=== PATIENT | male | born 1970 | race Caucasian/White ===

== ENCOUNTER 2018-01-24 18:58 | Emergency (ER) | payer OTHER, BC ==
[2018-01-24] MEDS: CETACAINE SPRAY 5GM TOP (19:30)
[2018-01-24] MEDS: NS 1,000 ML IV (19:30)
[2018-01-24] MEDS: BUPIVACAINE HCL 0.5% 30 ML VIAL SC (19:30)
[2018-01-24 20:13] LABS: ACETAMINOPHEN LEVEL < 2.0 UG/ML (10.0-30.0); ALBUMIN 4.1 GM/DL (3.2-5.2); ALBUMIN/GLOBULIN RATIO 1.32 (1.00-1.93); ALKALINE PHOSPHATASE 65 U/L (45-117); ALT/SGPT 41 U/L (12-78); ANION GAP 10 MEQ/L (8-16); AST/SGOT 27 U/L (7-37); BILIRUBIN,DIRECT < 0.1 MG/DL (0.0-0.2); BILIRUBIN,TOTAL 0.2 MG/DL (0.2-1.0); BLOOD UREA NITROGEN 23 MG/DL (7-18); CALCIUM LEVEL 8.8 MG/DL (8.5-10.1); CARBON DIOXIDE LEVEL 22 MEQ/L (21-32); CHLORIDE LEVEL 109 MEQ/L (98-107); CREATININE FOR GFR 0.95 MG/DL (0.70-1.30); GLOMERULAR FILTRATION RATE > 60.0 (>60); GLUCOSE, FASTING 119 MG/DL (70-100); POTASSIUM SERUM 4.2 MEQ/L (3.5-5.1); SALICYLATE LEVEL 10.2 MG/DL (5.0-30.0); SODIUM LEVEL 141 MEQ/L (136-145); TOTAL PROTEIN 7.2 GM/DL (6.4-8.2)
== END 2018-01-24 21:25 | disposition home or self-care (01) ==
LOC: M ED 18:58
DX: K08.89 Other specified disorders of teeth and supporting structures (principal); F17.210 Nicotine dependence, cigarettes, uncomplicated
CPT/HCPCS: 80076

== ENCOUNTER → 2018-06-27 | Outpatient (REF) | payer BC | LOC: M SFHCLERA 11:56 | PROVIDERS: ATTEND Physician Assistant | DX: J02.9 Acute pharyngitis, unspecified (principal) ==

== ENCOUNTER → 2018-06-27 | Outpatient (CLI) | payer BC ==
--- NOTE | 2018-06-27 12:45 | REP ---
Chest two views HISTORY: Cough Comparison: 12/15/2011 The lungs are clear. The heart is normal in size. The pulmonary vasculature is normal in appearance. The bony structure is intact. IMPRESSION: No acute disease. Electronically Signed by Roberto Meléndez MD 06/27/2018 12:37 P
== END ==
LOC: M LRY 12:15
PROVIDERS: ATTEND Physician Assistant
DX: R05 Cough (principal); R06.02 Shortness of breath

== ENCOUNTER 2018-10-07 17:26 | Emergency (ER) | payer BC ==
[2018-10-07 17:54] LABS: BASO # 0.1 10^3/uL (0.0-0.2); BASO % 0.4 % (0.0-1.0); EOS # 0.3 10^3/uL (0.0-0.50); EOS % 2.2 % (0.0-3.0); HEMATOCRIT 42.5 % (42.0-52.0); HEMOGLOBIN 14.1 g/dl (13.5-17.5); LYMPH # 2.9 10^3/uL (1.5-4.5); LYMPH % 26.1 % (24.0-44.0); MEAN CORPUSCULAR HEMOGLOBIN 28.7 pg (27.0-33.0); MEAN CORPUSCULAR HGB CONC 33.2 g/dl (32.0-36.5); MEAN CORPUSCULAR VOLUME 86.4 fl (80.0-96.0); MONO # 0.8 10^3/uL (0.0-0.8); MONO % 6.8 % (0.0-5.0); NEUTROPHILS # 7.2 10^3/uL (1.8-7.7); NEUTROPHILS % 64.1 % (36.0-66.0); PLATELET COUNT, AUTOMATED 236 10^3/uL (150-450); RED BLOOD COUNT 4.92 10^6/uL (4.30-6.10); WHITE BLOOD COUNT 11.2 10^3/uL (4.0-10.0)
[2018-10-07 18:16] LABS: ALBUMIN 3.4 GM/DL (3.2-5.2); ALT/SGPT 40 U/L (12-78); BILIRUBIN,DIRECT < 0.1 MG/DL (0.0-0.2); BILIRUBIN,TOTAL 0.2 MG/DL (0.2-1.0); LIPASE 104 U/L (73-393); TOTAL PROTEIN 7.2 GM/DL (6.4-8.2)
[2018-10-07 18:18] LABS: INR 0.96; PROTHROMBIN TIME 12.9 SECONDS (12.1-14.4)
[2018-10-07 18:19] LABS: PARTIAL THROMBOPLASTIN TIME 26.8 SECONDS (25.4-37.6)
[2018-10-07 18:21] LABS: BLOOD UREA NITROGEN 19 MG/DL (7-18); CALCIUM LEVEL 8.4 MG/DL (8.5-10.1); CARBON DIOXIDE LEVEL 23 MEQ/L (21-32); CHLORIDE LEVEL 107 MEQ/L (98-107); CK-MB VALUE MASS 1.2 NG/ML (<3.6); CPK CREATINE PHOSPHOKINASE 217 U/L (39-308); CREATININE FOR GFR 0.98 MG/DL (0.70-1.30); GLOMERULAR FILTRATION RATE > 60.0 (>56); GLUCOSE, FASTING 272 MG/DL (70-100); MB/CK RELATIVE INDEX 0.55 (< OR =4); POTASSIUM SERUM 3.9 MEQ/L (3.5-5.1); SODIUM LEVEL 140 MEQ/L (136-145); TROPONIN I < 0.02 NG/ML (< 0.10)
--- NOTE | 2018-10-07 19:33 | REP ---
Portable chest x-ray: Two views: History: Chest pain. Comparison study: June 27, 2018. Findings: EKG monitoring electrodes overlie the chest. The lungs are well inflated and clear. Heart size is normal. Pulmonary vasculature is not increased. No bony abnormalities appreciated. Impression: No active disease. Electronically Signed by Isidro Elliott MD 10/07/2018 07:45 P
[2018-10-07 22:48] LABS: CK-MB VALUE MASS 1.5 NG/ML (<3.6); CPK CREATINE PHOSPHOKINASE 215 U/L (39-308); TROPONIN I < 0.02 NG/ML (< 0.10)
[2018-10-07 22:57] VITALS: BP 121/66
--- NOTE | 2018-10-08 08:10 | ECGEPIP ---
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
--- NOTE | 2018-10-08 08:18 | ECGEPIP ---
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
== END 2018-10-07 22:59 | disposition home or self-care (01) ==
LOC: M ED 17:26 → EDBD 17:26 → M ED 22:59
DX: R07.89 Other chest pain (principal); I45.10 Unspecified right bundle-branch block; F17.210 Nicotine dependence, cigarettes, uncomplicated

== ENCOUNTER → 2019-01-18 | Outpatient (CLI) | payer BC ==
--- NOTE | 2019-01-19 09:30 | REP ---
CHEST, TWO VIEWS: COMPARISON: 10/07/2018 as well as other prior exams. There is no evidence of acute infiltrate. No pleural effusion is seen. The heart is normal in size. The mediastinal silhouette is unremarkable. The visualized osseous structures are intact. There are mild degenerative changes of the spine. IMPRESSION: No acute pulmonary disease. Electronically Signed by Darvin Rivas MD 01/19/2019 05:57 P
== END ==
LOC: M LRY 17:14
PROVIDERS: ATTEND Physician Assistant
DX: R06.2 Wheezing (principal)

== ENCOUNTER → 2020-05-25 | Outpatient (REF) | payer BC ==
[2020-05-25 17:02] LABS: BASO # 0.1 10^3/uL (0.0-0.2); BASO % 0.6 % (0.0-1.0); EOS # 0.5 10^3/uL (0.0-0.5); EOS % 4.3 % (0.0-3.0); HEMATOCRIT 46.5 % (42.0-52.0); HEMOGLOBIN 15.6 g/dl (13.5-17.5); LYMPH # 3.5 10^3/uL (1.5-5.0); LYMPH % 32.6 % (24.0-44.0); MEAN CORPUSCULAR HEMOGLOBIN 28.8 pg (27.0-33.0); MEAN CORPUSCULAR HGB CONC 33.5 g/dl (32.0-36.5); MONO # 0.8 10^3/uL (0.0-0.8); MONO % 7.3 % (0.0-5.0); NEUTROPHILS # 5.9 10^3/uL (1.5-8.5); NEUTROPHILS % 54.7 % (36.0-66.0); PLATELET COUNT, AUTOMATED 252 10^3/uL (150-450); RED BLOOD COUNT 5.41 10^6/uL (4.30-6.10); WHITE BLOOD COUNT 10.7 10^3/uL (4.0-10.0)
[2020-05-25 17:45] LABS: ALBUMIN 4.2 GM/DL (3.2-5.2); ALT/SGPT 43 U/L (12-78); BILIRUBIN,TOTAL 0.3 MG/DL (0.2-1.0); BLOOD UREA NITROGEN 22 MG/DL (7-18); CALCIUM LEVEL 9.6 MG/DL (8.5-10.1); CARBON DIOXIDE LEVEL 27 MEQ/L (21-32); CHLORIDE LEVEL 103 MEQ/L (98-107); CHOLESTEROL LEVEL 240 MG/DL (<200); CHOLESTEROL RISK RATIO 8.571 (<5); CREATININE FOR GFR 0.88 MG/DL (0.70-1.30); FREE T4 0.82 NG/DL (0.76-1.46); GLOMERULAR FILTRATION RATE > 60.0 (>56); GLUCOSE, FASTING 177 MG/DL (70-100); HDL CHOLESTEROL 28 MG/DL (>40); MAGNESIUM LEVEL 2.1 MG/DL (1.8-2.4); NON-HDL-C 212 MG/DL; POTASSIUM SERUM 4.1 MEQ/L (3.5-5.1); SODIUM LEVEL 136 MEQ/L (136-145); TOTAL PROTEIN 7.5 GM/DL (6.4-8.2); TRIGLYCERIDES LEVEL 640 MG/DL (<150)
[2020-05-25 19:15] LABS: HEMOGLOBIN A1c 8.9 %
[2020-05-29 16:13] LABS: C-PEPTIDE 4.1 ng/mL (1.1-4.4); ISLET CELL ANTIBODIES Negative (Neg:<1:1)
== END ==
LOC: M SFHCPLAZ 14:39
PROVIDERS: ATTEND Nurse Practitioner Family
DX: Z13.228 Encounter for screening for other metabolic disorders (principal); Z13.220 Encounter for screening for lipoid disorders; Z12.5 Encounter for screening for malignant neoplasm of prostate; I10 Essential (primary) hypertension; E11.9 Type 2 diabetes mellitus without complications
CPT/HCPCS: 36415; 80053; 80061; 83036; 83519; 83735; 84439; 84443; 84681; 85025; 86341; G0103

== ENCOUNTER → 2020-06-07 | Outpatient (CLI) | payer BC ==
--- NOTE | 2020-06-07 14:57 | REP ---
INDICATION: HTN EVAL FOR MILAN COMPARISON: None TECHNIQUE: Real time richmond scale ultrasound examination using curved array transducer followed by color Doppler evaluation of the renal vasculature. FINDINGS: The bilateral kidneys are normal in appearance. Right kidney measures 12.9 x 6.1 x 5.7 cm. Left kidney measures 12.9 x 5.8 x 6.1 cm. Bladder is under distended. Color Doppler evaluation is significantly limited due to overlying bowel gas obscuring the bilateral main renal arteries.. Peak aortic velocity: 60 centimeters/second RIGHT KIDNEY Renal arterial velocity: -- centimeters/second Renal-aortic ratio: -- Intrarenal resistive indices: 0.60-0.64 Intrarenal acceleration times: 0.042-0.050 LEFT KIDNEY Renal arterial velocity: -- centimeters/second Renal-aortic ratio: -- Intrarenal resistive indices: 0.53-0.55 Intrarenal acceleration times: 0.042-0.046 IMPRESSION: 1. Kidneys appear normal. 2. Doppler interegation is incomplete due to overlying bowel gas obscuring the main renal arteries. No secondary intrarenal findings to suggest renal arterial stenosis. <Electronically signed by Charly Hammond > 06/07/20 [id number]
== END ==
LOC: M RAD 08:41
PROVIDERS: ATTEND Nurse Practitioner Family
DX: I10 Essential (primary) hypertension (principal)

== ENCOUNTER 2020-11-30 06:50 | Emergency (ER) | payer BC ==
[~2020-11-30] VITALS: Ht 182.9 cm; Wt 129.6 kg
[2020-11-30 08:09] LABS: BASO # 0.1 10^3/uL (0.0-0.2); BASO % 0.4 % (0.0-1.0); EOS # 0.2 10^3/uL (0.0-0.5); EOS % 1.8 % (0.0-3.0); HEMATOCRIT 45.3 % (42.0-52.0); HEMOGLOBIN 15.1 g/dl (13.5-17.5); LYMPH # 1.7 10^3/uL (1.5-5.0); LYMPH % 14.5 % (24.0-44.0); MEAN CORPUSCULAR HEMOGLOBIN 28.9 pg (27.0-33.0); MEAN CORPUSCULAR HGB CONC 33.3 g/dl (32.0-36.5); MEAN CORPUSCULAR VOLUME 86.6 fl (80.0-96.0); MONO # 0.5 10^3/uL (0.0-0.8); MONO % 4.6 % (2.0-8.0); NEUTROPHILS # 9.1 10^3/uL (1.5-8.5); NEUTROPHILS % 78.2 % (36.0-66.0); PLATELET COUNT, AUTOMATED 228 10^3/uL (150-450); RED BLOOD COUNT 5.23 10^6/uL (4.30-6.10); WHITE BLOOD COUNT 11.6 10^3/uL (4.0-10.0)
[2020-11-30 08:33] LABS: BLOOD UREA NITROGEN 21 MG/DL (7-18); CARBON DIOXIDE LEVEL 27 MEQ/L (21-32); CHLORIDE LEVEL 106 MEQ/L (98-107); CK-MB VALUE MASS 1.5 NG/ML (<3.6); CPK CREATINE PHOSPHOKINASE 118 U/L (39-308); CREATININE FOR GFR 0.78 MG/DL (0.70-1.30); GLOMERULAR FILTRATION RATE > 60.0 (>56); GLUCOSE, FASTING 212 MG/DL (70-100); MB/CK RELATIVE INDEX 1.27 (< OR =4); POTASSIUM SERUM 4.3 MEQ/L (3.5-5.1); SODIUM LEVEL 140 MEQ/L (136-145); TROPONIN I < 0.02 NG/ML (< 0.10)
--- NOTE | 2020-11-30 08:57 | REP ---
INDICATION: dizziness. COMPARISON: None. TECHNIQUE: Contiguous 5 mm thick axial projection images were obtained through the head. 2D coronal reconstructions were performed. FINDINGS: There is a focus of encephalomalacia in the right prefrontal cortex, may be posttraumatic. There is no evidence of acute intracranial hemorrhage or infarction. There are no abnormal intracranial masses or mass effects. The skull base and calvarium are normal. There is almost complete opacification of the right maxillary sinus. There is a mucous retention cyst or polyp in the left maxillary sinus. There are multiple opacified ethmoidal air cells, bilaterally. There are multiple opacified mastoid air cells on the left. The right mastoid is normal. The intraorbital contents are normal. Visualized extracranial soft tissues have a normal unenhanced appearance. IMPRESSION: 1. 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 2. No evidence of acute intracranial pathology. 3. Chronic maxillary and ethmoidal sinusitis and chronic left mastoiditis. <Electronically signed by Rdori Eisenberg > 11/30/20 [id number]
[2020-11-30] MEDS ORDERED: GLIM2TAB29 (09:15)
[2020-11-30] MEDS ORDERED: dexameTHASONE 20MG/5ML VIAL (J1100 PER 1MG) IV ONE (09:20)
[2020-11-30] MEDS ORDERED: LevoFLOXacin IV 500 MG in IV 1 EA IV ONE (09:25)
[2020-11-30] MEDS ORDERED: METH4PACK PO (12:04)
[2020-11-30] MEDS ORDERED: LEVO500T3 PO (12:04)
[2020-11-30] MEDS ORDERED: MECL1TAB31 PO (12:05)
[2020-11-30 12:38] VITALS: BP 140/72
--- NOTE | 2020-11-30 21:54 | ECGEPIP ---
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
== END 2020-11-30 12:38 | disposition home or self-care (01) ==
LOC: M ED 06:50
DX: R42 Dizziness and giddiness (principal); H70.12 Chronic mastoiditis, left ear; G93.89 Other specified disorders of brain; E11.9 Type 2 diabetes mellitus without complications; E66.9 Obesity, unspecified; F17.200 Nicotine dependence, unspecified, uncomplicated; Z79.899 Other long term (current) drug therapy
CPT/HCPCS: 70450; 80048; 82550; 82553; 84484; 85025; 93005; 96365; 96375; 97112; 97161; 99285; J1100; J1956

== ENCOUNTER → 2020-12-21 | Outpatient (CLI) | payer BC ==
[~2020-12-21] MED LIST: GLIM2TAB29; LEVO500T3 PO; MECL1TAB31 PO; METH4PACK PO
[2020-12-21 20:03] LABS: ALBUMIN 3.5 GM/DL (3.2-5.2); ALT/SGPT 38 U/L (12-78); BILIRUBIN,TOTAL 0.2 MG/DL (0.2-1.0); BLOOD UREA NITROGEN 13 MG/DL (7-18); CALCIUM LEVEL 8.7 MG/DL (8.5-10.1); CARBON DIOXIDE LEVEL 25 MEQ/L (21-32); CHLORIDE LEVEL 110 MEQ/L (98-107); CHOLESTEROL LEVEL 226 MG/DL (<200); CHOLESTEROL RISK RATIO 8.692 (<5); CREATININE FOR GFR 0.88 MG/DL (0.70-1.30); GLOMERULAR FILTRATION RATE > 60.0 (>56); GLUCOSE, FASTING 198 MG/DL (70-100); HDL CHOLESTEROL 26 MG/DL (>40); NON-HDL-C 200 MG/DL; SODIUM LEVEL 140 MEQ/L (136-145); TOTAL PROTEIN 6.7 GM/DL (6.4-8.2); TRIGLYCERIDES LEVEL 444 MG/DL (<150)
[2020-12-21 20:56] LABS: MAU/CREAT RATIO 197.2 MCG/MG (0.0-30.0)
[2020-12-21 22:40] LABS: HEMOGLOBIN A1c 9.6 %
== END ==
LOC: M WUC 14:59
PROVIDERS: ATTEND Nurse Practitioner Family
DX: E11.9 Type 2 diabetes mellitus without complications (principal); E78.5 Hyperlipidemia, unspecified

== ENCOUNTER → 2021-04-07 | Outpatient (CLI) | payer BC ==
[2021-04-07 19:48] LABS: BASO # 0.1 10^3/uL (0.0-0.2); BASO % 0.9 % (0.0-1.0); EOS # 0.6 10^3/uL (0.0-0.5); EOS % 5.5 % (0.0-3.0); HEMATOCRIT 49.3 % (42.0-52.0); HEMOGLOBIN 16.4 g/dl (13.5-17.5); LYMPH # 3.9 10^3/uL (1.5-5.0); LYMPH % 34.7 % (24.0-44.0); MEAN CORPUSCULAR HGB CONC 33.3 g/dl (32.0-36.5); MEAN CORPUSCULAR VOLUME 87.1 fl (80.0-96.0); MONO # 0.8 10^3/uL (0.0-0.8); MONO % 6.9 % (2.0-8.0); NEUTROPHILS # 5.9 10^3/uL (1.5-8.5); NEUTROPHILS % 51.7 % (36.0-66.0); PLATELET COUNT, AUTOMATED 258 10^3/uL (150-450); RED BLOOD COUNT 5.66 10^6/uL (4.30-6.10); WHITE BLOOD COUNT 11.4 10^3/uL (4.0-10.0)
[2021-04-07 20:34] LABS: ALBUMIN 3.8 GM/DL (3.2-5.2); ALT/SGPT 38 U/L (12-78); BILIRUBIN,TOTAL 0.4 MG/DL (0.2-1.0); BLOOD UREA NITROGEN 15 MG/DL (7-18); CALCIUM LEVEL 9.6 MG/DL (8.5-10.1); CARBON DIOXIDE LEVEL 31 MEQ/L (21-32); CHLORIDE LEVEL 98 MEQ/L (98-107); CHOLESTEROL LEVEL 156 MG/DL (<200); CHOLESTEROL RISK RATIO 4.333 (<5); CREATININE FOR GFR 0.91 MG/DL (0.70-1.30); GLOMERULAR FILTRATION RATE > 60.0 (>56); GLUCOSE, FASTING 311 MG/DL (70-100); HDL CHOLESTEROL 36 MG/DL (>40); LDL CHOLESTEROL 86 MG/DL (<100); NON-HDL-C 120 MG/DL; POTASSIUM SERUM 4.1 MEQ/L (3.5-5.1); SODIUM LEVEL 134 MEQ/L (136-145); TOTAL PROTEIN 7.1 GM/DL (6.4-8.2); TRIGLYCERIDES LEVEL 169 MG/DL (<150)
== END ==
LOC: M WUC 15:40
PROVIDERS: ATTEND Family Medicine
DX: R68.89 Other general symptoms and signs (principal)

== ENCOUNTER → 2021-04-08 | Outpatient (CLI) | payer BC ==
[~2021-04-08] MED LIST changes: -LEVO500T3 PO; +LEVO500T4 PO
== END ==
LOC: M RAD 08:06
PROVIDERS: ATTEND Family Medicine
DX: R68.89 Other general symptoms and signs (principal); J34.1 Cyst and mucocele of nose and nasal sinus; D16.4 Benign neoplasm of bones of skull and face; J32.0 Chronic maxillary sinusitis

== ENCOUNTER → 2021-04-15 | Outpatient (CLI) | payer BC ==
[~2021-04-15] MED LIST changes: +GASTROGRAFIN SOLUTION 30ML (Q9963) As Ordered ONE; +ISOVUE-370 76% 100ML VIAL As Ordered ONE
== END ==
LOC: M RAD 15:01
PROVIDERS: ATTEND Family Medicine
DX: R19.7 Diarrhea, unspecified (principal); R10.84 Generalized abdominal pain; K57.30 Diverticulosis of large intestine without perforation or abscess without bleeding
CPT/HCPCS: 74177; Q9963; Q9967

== ENCOUNTER → 2021-04-27 | Outpatient (CLI) | payer BC ==
[~2021-04-27] MED LIST changes: -GASTROGRAFIN SOLUTION 30ML (Q9963) As Ordered ONE; -ISOVUE-370 76% 100ML VIAL As Ordered ONE; +LEVO500T3 PO; -LEVO500T4 PO; +PROHANCE 279.3MG/ML 15ML VIAL As Ordered ONE; +PROHANCE 279.3MG/ML 5ML VIAL As Ordered ONE
--- NOTE | 2021-04-27 15:15 | REPVR ---
PROCEDURE INFORMATION: Exam: MR Head Without and With Contrast Exam date and time: 04/27/2021 8:40 AM Age: 50 years old Clinical indication: Pain; Headache not specified; Additional info: Headaches TECHNIQUE: Imaging protocol: MR of the head without and with intravenous contrast. Contrast material: PROHANCE; Contrast volume: 20 ml; Contrast route: INTRAVENOUS (IV); COMPARISON: CT Head without contrast 04/08/2021 8:30 AM FINDINGS: Brain: Stable small focal chronic hypodense nonenhancing encephalomalacia in the right anterior frontal lobe. Examination reveals few small focal areas of increased T2 signal in bilateral frontal and parietal subcortical and deep white matter. These are nonspecific and could be secondary to chronic migraine headache, vasculitis, Lyme disease, demyelination and focal areas of chronic ischemia. No acute infarction, masses, midline shift or acute hemorrhage is seen. No acute intracranial abnormality is identified. There is no abnormal diffusion weighted signal intensity to suggest an acute ischemic event. Examination of the posterior fossa demonstrates no significant abnormality. Cerebral ventricles: The ventricular system is not dilated and is appropriate for the patient's age. Bones/joints: Unremarkable. Paranasal sinuses: Retention cysts in bilateral maxillary sinuses. Moderate mucosal thickening in bilateral ethmoid sinuses. Mastoid air cells: Left-sided mastoid effusions/mastoiditis. Orbital cavity: Unremarkable. Soft tissues: Unremarkable. IMPRESSION: 1. Stable small focal chronic hypodense nonenhancing encephalomalacia in the right anterior frontal lobe. 2. Examination reveals few small focal areas of increased T2 signal in bilateral frontal and parietal subcortical and deep white matter. These are nonspecific and could be secondary to chronic migraine headache, vasculitis, Lyme disease, demyelination and focal areas of chronic ischemia. 3. No acute infarction, masses, midline shift or acute hemorrhage is seen. No acute intracranial abnormality is identified. No abnormal contrast enhancement is seen. 4. Left-sided mastoid effusions/mastoiditis. Electronically signed by: Raymond Card On 04/27/2021 15:14:38 PM
== END ==
LOC: M RAD 07:14
PROVIDERS: ATTEND Family Medicine
DX: G93.89 Other specified disorders of brain (principal); H74.8X2 Other specified disorders of left middle ear and mastoid; R51.9 Headache, unspecified
CPT/HCPCS: 70553; 87505; A9576

== ENCOUNTER → 2021-10-27 | Outpatient (CLI) | payer BC ==
[~2021-10-27] MED LIST changes: -LEVO500T3 PO; +LEVO500T4 PO; -PROHANCE 279.3MG/ML 15ML VIAL As Ordered ONE; -PROHANCE 279.3MG/ML 5ML VIAL As Ordered ONE
[2021-10-27 17:17] LABS: BASO # 0.1 10^3/uL (0.0-0.2); BASO % 0.8 % (0.0-1.0); EOS # 0.5 10^3/uL (0.0-0.5); EOS % 5.6 % (0.0-3.0); HEMATOCRIT 42.1 % (42.0-52.0); HEMOGLOBIN 14.2 g/dl (13.5-17.5); LYMPH % 34.1 % (24.0-44.0); MEAN CORPUSCULAR HEMOGLOBIN 29.6 pg (27.0-33.0); MEAN CORPUSCULAR HGB CONC 33.7 g/dl (32.0-36.5); MEAN CORPUSCULAR VOLUME 87.9 fl (80.0-96.0); MONO # 0.8 10^3/uL (0.0-0.8); MONO % 8.5 % (2.0-8.0); NEUTROPHILS # 4.5 10^3/uL (1.5-8.5); NEUTROPHILS % 50.8 % (36.0-66.0); PLATELET COUNT, AUTOMATED 241 10^3/uL (150-450); RED BLOOD COUNT 4.79 10^6/uL (4.30-6.10); WHITE BLOOD COUNT 8.8 10^3/uL (4.0-10.0)
[2021-10-27 17:39] LABS: ALBUMIN 4.3 GM/DL (3.2-5.2); ALT/SGPT 27 U/L (12-78); BILIRUBIN,TOTAL 0.4 MG/DL (0.2-1.0); BLOOD UREA NITROGEN 23 MG/DL (7-18); C REACTIVE PROTEIN QUANTITATIV 0.37 MG/DL (0.00-0.30); CALCIUM LEVEL 9.6 MG/DL (8.5-10.1); CARBON DIOXIDE LEVEL 28 MEQ/L (21-32); CHLORIDE LEVEL 108 MEQ/L (98-107); CHOLESTEROL LEVEL 187 MG/DL (<200); CHOLESTEROL RISK RATIO 5.666 (<5); CREATININE FOR GFR 0.93 MG/DL (0.70-1.30); GLOMERULAR FILTRATION RATE > 60.0 (>56); GLUCOSE, FASTING 124 MG/DL (70-100); HDL CHOLESTEROL 33 MG/DL (>40); LDL CHOLESTEROL 113 MG/DL (<100); NON-HDL-C 154 MG/DL; POTASSIUM SERUM 3.9 MEQ/L (3.5-5.1); RHEUMATOID FACTOR QUANT < 10.0 IU/ML (<15.0); SODIUM LEVEL 139 MEQ/L (136-145); TOTAL PROTEIN 6.9 GM/DL (6.4-8.2); TRIGLYCERIDES LEVEL 205 MG/DL (<150)
[2021-10-27 18:07] LABS: ERYTHROCYTE SEDIMENTATION RATE 10 mm/hr (0-20)
[2021-10-27 18:16] LABS: HEMOGLOBIN A1c 6.8 %
[2021-10-27 21:00] LABS: VITAMIN B12 LEVEL 526 PG/ML (247-911)
[2021-11-02 00:08] LABS: ANA (HEP2) Negative (.); CYCLIC CITRULLINATED PEPTIDE 7 units (0-19)
== END ==
LOC: M PLALAB 15:04
PROVIDERS: ATTEND Nurse Practitioner Family
DX: R20.0 Anesthesia of skin (principal); M25.541 Pain in joints of right hand; E78.5 Hyperlipidemia, unspecified; E11.9 Type 2 diabetes mellitus without complications

== ENCOUNTER → 2022-04-04 | Outpatient (CLI) | payer BC ==
[~2022-04-04] MED LIST changes: +LEVO1TAB39 PO; -LEVO500T4 PO
[2022-04-04 17:05] LABS: BASO # 0.1 10^3/uL (0.0-0.2); BASO % 0.5 % (0.0-1.0); EOS # 0.4 10^3/uL (0.0-0.5); HEMATOCRIT 42.9 % (42.0-52.0); HEMOGLOBIN 14.1 g/dl (13.5-17.5); LYMPH # 3.5 10^3/uL (1.5-5.0); LYMPH % 29.8 % (24.0-44.0); MEAN CORPUSCULAR HEMOGLOBIN 29.3 pg (27.0-33.0); MEAN CORPUSCULAR HGB CONC 32.9 g/dl (32.0-36.5); MONO # 0.9 10^3/uL (0.0-0.8); MONO % 7.8 % (2.0-8.0); NEUTROPHILS # 6.9 10^3/uL (1.5-8.5); NEUTROPHILS % 58.6 % (36.0-66.0); PLATELET COUNT, AUTOMATED 259 10^3/uL (150-450); RED BLOOD COUNT 4.82 10^6/uL (4.30-6.10); WHITE BLOOD COUNT 11.9 10^3/uL (4.0-10.0)
[2022-04-04 18:03] LABS: ALBUMIN 3.8 G/DL (3.2-5.2); ALKALINE PHOSPHATASE 91 U/L (46-116); ALT/SGPT 38 U/L (7.0-40); AST/SGOT 20 U/L (<34); BILIRUBIN,TOTAL 0.2 MG/DL (0.3-1.2); BLOOD UREA NITROGEN 25 MG/DL (9-23); CALCIUM LEVEL 9.5 MG/DL (8.5-10.1); CARBON DIOXIDE LEVEL 27 MMOL/L (20-31); CHLORIDE LEVEL 102 MMOL/L (98-107); CHOLESTEROL LEVEL 141 MG/DL (<200); CREATININE FOR GFR 0.79 MG/DL (0.70-1.30); GLOMERULAR FILTRATION RATE > 60.0 (>56); GLUCOSE, FASTING 162 MG/DL (60-100); HDL CHOLESTEROL 33.5 MG/DL (>40); LDL CHOLESTEROL 66.3 MG/DL (<100); NON-HDL-C 108 MG/DL; POTASSIUM SERUM 4.1 MMOL/L (3.5-5.1); SODIUM LEVEL 136 MMOL/L (136-145); TOTAL PROTEIN 7.1 G/DL (5.7-8.2); TRIGLYCERIDES LEVEL 206 MG/DL (<150)
[2022-04-04 18:16] LABS: CREATININE, URINE 145.6 MG/DL; MAU/CREAT RATIO 184.7 MCG/MG (0.0-30.0)
[2022-04-04 19:07] LABS: HEMOGLOBIN A1c 8.5 % (4.0-6.0)
== END ==
LOC: M PLALAB 16:01
PROVIDERS: ATTEND Nurse Practitioner Family
DX: I10 Essential (primary) hypertension (principal); E78.5 Hyperlipidemia, unspecified; E11.9 Type 2 diabetes mellitus without complications

== ENCOUNTER 2022-06-19 08:01 | Day surgery (SDC) | payer BC ==
[~2022-06-19] VITALS: Ht 190.5 cm; Wt 135.6 kg
[~2022-06-19 08:01] MED LIST changes: +ALBU8.5H INH; +ATOR80TA59 PO; +GLIM4TAB5 PO; +LISI10TA22 PO; +METF-838 PO; +NS 1,000 ML IV ONE
[2022-06-19] MEDS ORDERED: propofoL 200 MG/20 ML VIAL As Ordered ONE ×4 (09:31→10:07)
[2022-06-19] MEDS ORDERED: LIDOCAINE 2% 100MG/5ML SDV (FOR ANES.) As Ordered ONE (09:32)
[2022-06-19 10:50] VITALS: BP 111/68
== END 2022-06-19 11:10 | disposition home or self-care (01) ==
LOC: M OPP 08:01
PROVIDERS: ATTEND Internal Medicine Gastroenterology
DX: Z12.11 Encounter for screening for malignant neoplasm of colon (principal); D12.3 Benign neoplasm of transverse colon; D12.2 Benign neoplasm of ascending colon; D12.7 Benign neoplasm of rectosigmoid junction; K64.0 First degree hemorrhoids; G47.33 Obstructive sleep apnea (adult) (pediatric); E11.9 Type 2 diabetes mellitus without complications; J45.909 Unspecified asthma, uncomplicated; F17.200 Nicotine dependence, unspecified, uncomplicated; Z79.02 Long term (current) use of antithrombotics/antiplatelets; Z79.51 Long term (current) use of inhaled steroids; Z79.84 Long term (current) use of oral hypoglycemic drugs; Z79.899 Other long term (current) drug therapy; Z80.3 Family history of malignant neoplasm of breast

== ENCOUNTER → 2022-09-27 | Outpatient (CLI) | payer BC ==
[~2022-09-27] MED LIST changes: -NS 1,000 ML IV ONE
[2022-09-27 11:02] LABS: BASO # 0.1 10^3/uL (0.0-0.2); BASO % 0.5 % (0.0-1.0); EOS # 0.5 10^3/uL (0.0-0.5); EOS % 4.8 % (0.0-3.0); HEMATOCRIT 48.5 % (42.0-52.0); HEMOGLOBIN 16.1 g/dl (13.5-17.5); LYMPH # 3.2 10^3/uL (1.5-5.0); LYMPH % 33.1 % (24.0-44.0); MEAN CORPUSCULAR HEMOGLOBIN 29.2 pg (27.0-33.0); MEAN CORPUSCULAR HGB CONC 33.2 g/dl (32.0-36.5); MONO # 0.7 10^3/uL (0.0-0.8); MONO % 7.1 % (2.0-8.0); NEUTROPHILS # 5.3 10^3/uL (1.5-8.5); PLATELET COUNT, AUTOMATED 273 10^3/uL (150-450); RED BLOOD COUNT 5.51 10^6/uL (4.30-6.10); WHITE BLOOD COUNT 9.7 10^3/uL (4.0-10.0)
[2022-09-27 11:23] LABS: CREATININE, URINE 105.4 MG/DL
[2022-09-27 11:24] LABS: ALBUMIN 4.1 G/DL (3.2-5.2); ALKALINE PHOSPHATASE 81 U/L (46-116); ALT/SGPT 34 U/L (7.0-40); AST/SGOT 26 U/L (<34); BILIRUBIN,TOTAL 0.4 MG/DL (0.3-1.2); BLOOD UREA NITROGEN 26 MG/DL (9-23); CALCIUM LEVEL 8.6 MG/DL (8.5-10.1); CARBON DIOXIDE LEVEL 28 MMOL/L (20-31); CHLORIDE LEVEL 100 MMOL/L (98-107); CHOLESTEROL LEVEL 169 MG/DL (<200); CHOLESTEROL RISK RATIO 4.72 (<5); CREATININE FOR GFR 0.72 MG/DL (0.70-1.30); GLOMERULAR FILTRATION RATE > 60.0 (>56); GLUCOSE, FASTING 192 MG/DL (60-100); HDL CHOLESTEROL 35.8 MG/DL (>40); LDL CHOLESTEROL 75.4 MG/DL (<100); NON-HDL-C 133.2 MG/DL; POTASSIUM SERUM 4.7 MMOL/L (3.5-5.1); SODIUM LEVEL 136 MMOL/L (136-145); TRIGLYCERIDES LEVEL 289 MG/DL (<150)
[2022-09-27 11:25] LABS: MAU/CREAT RATIO 250.4 MCG/MG (0.0-30.0)
[2022-09-27 11:30] LABS: HEMOGLOBIN A1c 8.8 % (4.0-6.0)
== END ==
LOC: M PLALAB 08:20
PROVIDERS: ATTEND Nurse Practitioner Family
DX: I10 Essential (primary) hypertension (principal); E78.5 Hyperlipidemia, unspecified; E11.9 Type 2 diabetes mellitus without complications

== ENCOUNTER → 2023-06-01 | Outpatient (CLI) | payer BC ==
[~2023-06-01] MED LIST changes: +MECL-209 PO; -MECL1TAB31 PO
[2023-06-01 12:13] LABS: BASO # 0.1 10^3/uL (0.0-0.2); BASO % 0.6 % (0.0-1.0); EOS # 0.4 10^3/uL (0.0-0.5); EOS % 4.1 % (0.0-3.0); HEMATOCRIT 46.8 % (42.0-52.0); HEMOGLOBIN 15.6 g/dl (13.5-17.5); LYMPH % 33.8 % (24.0-44.0); MEAN CORPUSCULAR HEMOGLOBIN 29.5 pg (27.0-33.0); MEAN CORPUSCULAR HGB CONC 33.3 g/dl (32.0-36.5); MEAN CORPUSCULAR VOLUME 88.5 fl (80.0-96.0); MONO # 0.7 10^3/uL (0.0-0.8); MONO % 8.3 % (2.0-8.0); NEUTROPHILS # 4.6 10^3/uL (1.5-8.5); NEUTROPHILS % 52.9 % (36.0-66.0); PLATELET COUNT, AUTOMATED 267 10^3/uL (150-450); RED BLOOD COUNT 5.29 10^6/uL (4.30-6.10); WHITE BLOOD COUNT 8.7 10^3/uL (4.0-10.0)
[2023-06-01 12:35] LABS: MAU/CREAT RATIO 167.8 MCG/MG (0.0-30.0)
[2023-06-01 12:36] LABS: ALBUMIN 3.9 G/DL (3.2-5.2); ALKALINE PHOSPHATASE 85 U/L (46-116); ALT/SGPT 36 U/L (7.0-40); AST/SGOT 18 U/L (<34); BILIRUBIN,TOTAL 0.3 MG/DL (0.3-1.2); BLOOD UREA NITROGEN 24 MG/DL (9-23); CALCIUM LEVEL 9.2 MG/DL (8.5-10.1); CARBON DIOXIDE LEVEL 28 MMOL/L (20-31); CHLORIDE LEVEL 107 MMOL/L (98-107); CHOLESTEROL LEVEL 133 MG/DL (<200); CHOLESTEROL RISK RATIO 4.19 (<5); CREATININE FOR GFR 0.81 MG/DL (0.70-1.30); GLOMERULAR FILTRATION RATE > 60.0 (>56); GLUCOSE, FASTING 125 MG/DL (60-100); HDL CHOLESTEROL 31.7 MG/DL (>40); LDL CHOLESTEROL 79.1 MG/DL (<100); NON-HDL-C 101.3 MG/DL; POTASSIUM SERUM 4.7 MMOL/L (3.5-5.1); SODIUM LEVEL 140 MMOL/L (136-145); TOTAL PROTEIN 6.9 G/DL (5.7-8.2); TRIGLYCERIDES LEVEL 111 MG/DL (<150)
[2023-06-01 12:37] LABS: FREE T4 0.93 NG/DL (0.89-1.76)
[2023-06-01 12:38] LABS: THYROID STIMULATING HORMONE 0.842 uIU/ML (0.55-4.78)
[2023-06-01 13:10] LABS: HEMOGLOBIN A1c 6.8 % (4.0-6.0)
== END ==
LOC: M PLALAB 07:43
PROVIDERS: ATTEND Nurse Practitioner Family
DX: E78.5 Hyperlipidemia, unspecified (principal); M54.12 Radiculopathy, cervical region; I10 Essential (primary) hypertension; E11.9 Type 2 diabetes mellitus without complications; I99.9 Unspecified disorder of circulatory system

== ENCOUNTER → 2023-06-08 | Outpatient (CLI) | payer BC | LOC: M WHC 11:38 | PROVIDERS: ATTEND Nurse Practitioner Family | DX: R42 Dizziness and giddiness (principal) ==

== ENCOUNTER → 2023-06-20 | Outpatient (CLI) | payer BC | LOC: M WUC 14:06 | PROVIDERS: ATTEND Physician Assistant Medical | DX: J44.1 Chronic obstructive pulmonary disease with (acute) exacerbation (principal); I70.0 Atherosclerosis of aorta; I51.7 Cardiomegaly; R91.8 Other nonspecific abnormal finding of lung field ==

== ENCOUNTER → 2023-06-20 | Outpatient (REF) | payer BC | LOC: M SFHCCAPE 16:52 | PROVIDERS: ATTEND Physician Assistant Medical | DX: J20.9 Acute bronchitis, unspecified (principal) ==

== ENCOUNTER → 2023-07-25 | Outpatient (REF) | payer BC | LOC: M SFHCPLAZ 13:28 | PROVIDERS: ATTEND Nurse Practitioner Family | DX: L91.8 Other hypertrophic disorders of the skin (principal) ==

== ENCOUNTER 2023-07-30 02:24 | Inpatient (IN) | payer BC ==
[~2023-07-30] VITALS: Ht 190.5 cm; Wt 146.0 kg
[2023-07-30 03:52] LABS: HEMATOCRIT 46.7 % (42.0-52.0); HEMOGLOBIN 16.1 g/dl (13.5-17.5); MEAN CORPUSCULAR VOLUME 87.1 fl (80.0-96.0); RED BLOOD COUNT 5.36 10^6/uL (4.30-6.10); WHITE BLOOD COUNT 22.4 10^3/uL (4.0-10.0)
[2023-07-30 03:53] LABS: BASO # 0.1 10^3/uL (0.0-0.2); BASO % 0.3 % (0.0-1.0); EOS # 0.2 10^3/uL (0.0-0.5); EOS % 0.8 % (0.0-3.0); LYMPH # 2.5 10^3/uL (1.5-5.0); LYMPH % 11.2 % (24.0-44.0); MEAN CORPUSCULAR HGB CONC 34.5 g/dl (32.0-36.5); MONO # 1.2 10^3/uL (0.0-0.8); MONO % 5.3 % (2.0-8.0); NEUTROPHILS # 18.3 10^3/uL (1.5-8.5); NEUTROPHILS % 81.8 % (36.0-66.0); PLATELET COUNT, AUTOMATED 272 10^3/uL (150-450)
[2023-07-30 04:00] LABS: LIPASE 31 U/L (12-53)
[2023-07-30 04:02] LABS: ALBUMIN 4.2 G/DL (3.2-5.2); ALKALINE PHOSPHATASE 99 U/L (46-116); ALT/SGPT 32 U/L (7.0-40); AST/SGOT 17 U/L (<34); BILIRUBIN,DIRECT 0.3 MG/DL (<0.4); BILIRUBIN,TOTAL 0.7 MG/DL (0.3-1.2); BLOOD UREA NITROGEN 19 MG/DL (9-23); CALCIUM LEVEL 9.5 MG/DL (8.5-10.1); CARBON DIOXIDE LEVEL 26 MMOL/L (20-31); CHLORIDE LEVEL 101 MMOL/L (98-107); CREATININE FOR GFR 0.79 MG/DL (0.70-1.30); GLOMERULAR FILTRATION RATE > 60.0 (>56); GLUCOSE, FASTING 182 MG/DL (60-100); POTASSIUM SERUM 4.7 MMOL/L (3.5-5.1); SODIUM LEVEL 135 MMOL/L (136-145); TOTAL PROTEIN 7.4 G/DL (5.7-8.2)
[2023-07-30] MEDS: ONDANSETRON 4MG 2ML VIAL IV ONE (04:05)
[2023-07-30] MEDS: NS 1,000 ML IV SCH ×2 (04:05→10:47)
[2023-07-30] MEDS: PIPERACILLIN/TAZOBACTAM SOD 3.375 GM in D5W MINI-BAG PLUS 50 ML IV ONE (04:05)
[2023-07-30] MEDS: MORPHINE 4 MG/ML 1ML VIAL IV PRN (04:06)
[2023-07-30] MEDS: GASTROGRAFIN SOLUTION 30ML PO SCH (04:42)
[2023-07-30] MEDS ORDERED: ISOVUE-370 76% 100ML VIAL As Ordered ONE (05:44)
[2023-07-30] MEDS ORDERED: MED REC IN PROGRESS XX SCH (08:30)
[2023-07-30] MEDS ORDERED: ONDANSETRON 4MG 2ML VIAL IV PRN (08:45)
[2023-07-30] MEDS ORDERED: GLUCOSE 4GM CHEW TABLET PO PRN (08:50)
[2023-07-30] MEDS ORDERED: DEXTROSE 50% 50ML SYRINGE IV PRN (08:50)
[2023-07-30] MEDS ORDERED: GLUCAGON INJ 1MG VIAL SC PRN (08:50)
[2023-07-30] MEDS ORDERED: VARE0.5T PO (09:12)
[2023-07-30] MEDS ORDERED: DULA3PEN SC (09:12)
[2023-07-30] MEDS ORDERED: STIO1AER INH (09:12)
[2023-07-30] MEDS ORDERED: HOME MED LIST COMPLETE! XX SCH (09:15)
[2023-07-30 09:39] LABS: C REACTIVE PROTEIN QUANTITATIV 3.5 MG/DL (<1.0)
[2023-07-30 10:18] VITALS: BP 140/79; TEMP 97.4; O2SAT 93
[2023-07-30] MEDS: PIPERACILLIN/TAZOBACTAM SOD 3.375 GM in D5W MINI-BAG PLUS 50 ML IV SCH (10:35)
[2023-07-30] MEDS: MORPHINE 2 MG/ML 1ML VIAL IV PRN (10:38)
[2023-07-30 12:00] VITALS: BP 147/86; TEMP 97.4; O2SAT 95
[2023-07-30] MEDS: INSULIN LISPRO (NovoLOG) PER UNIT SC SCH (12:00)
[2023-07-30] MEDS: KETOROLAC 30 MG/ML 1ML VIAL IV PRN (12:26)
[2023-07-30] MEDS: NICOTINE 21MG/24HR 1 EA TRANSDERMAL TD SCH (15:12)
[2023-07-30 16:00] VITALS: BP 131/77; TEMP 98.4; O2SAT 97
[2023-07-30 18:00] VITALS: BP 125/82; TEMP 100; O2SAT 93
[2023-07-30 23:10] VITALS: BP 109/62; TEMP 99.5; O2SAT 94
[2023-07-31] VITALS (9 sets, daily range): BP systolic 115–140; BP diastolic 60–92; TEMP 98.1–102; O2SAT 91–98
[2023-07-31 05:39] LABS: BASO # 0.1 10^3/uL (0.0-0.2); BASO % 0.3 % (0.0-1.0); EOS % 0.2 % (0.0-3.0); HEMOGLOBIN 14.3 g/dl (13.5-17.5); LYMPH # 2.1 10^3/uL (1.5-5.0); LYMPH % 10.8 % (24.0-44.0); MEAN CORPUSCULAR HEMOGLOBIN 29.7 pg (27.0-33.0); MEAN CORPUSCULAR HGB CONC 33.3 g/dl (32.0-36.5); MEAN CORPUSCULAR VOLUME 89.2 fl (80.0-96.0); MONO # 1.7 10^3/uL (0.0-0.8); MONO % 8.9 % (2.0-8.0); NEUTROPHILS # 15.4 10^3/uL (1.5-8.5); NEUTROPHILS % 79.3 % (36.0-66.0); PLATELET COUNT, AUTOMATED 233 10^3/uL (150-450); RED BLOOD COUNT 4.82 10^6/uL (4.30-6.10); WHITE BLOOD COUNT 19.4 10^3/uL (4.0-10.0)
[2023-07-31 06:13] LABS: ALBUMIN 3.3 G/DL (3.2-5.2); ALKALINE PHOSPHATASE 70 U/L (46-116); ALT/SGPT 22 U/L (7.0-40); AST/SGOT 9 U/L (<34); BILIRUBIN,TOTAL 0.9 MG/DL (0.3-1.2); BLOOD UREA NITROGEN 22 MG/DL (9-23); CALCIUM LEVEL 8.5 MG/DL (8.5-10.1); CARBON DIOXIDE LEVEL 30 MMOL/L (20-31); CHLORIDE LEVEL 102 MMOL/L (98-107); CREATININE FOR GFR 0.85 MG/DL (0.70-1.30); GLOMERULAR FILTRATION RATE > 60.0 (>56); GLUCOSE, FASTING 133 MG/DL (60-100); MAGNESIUM LEVEL 1.9 MG/DL (1.8-2.4); POTASSIUM SERUM 4.2 MMOL/L (3.5-5.1); SODIUM LEVEL 137 MMOL/L (136-145); TOTAL PROTEIN 6.2 G/DL (5.7-8.2)
[2023-07-31] MEDS ORDERED: MORPHINE 4 MG/ML 1ML VIAL IV PRN (07:20)
[2023-07-31] MEDS: MORPHINE 4 MG/ML 1ML VIAL IV PRN (07:51)
[2023-07-31 07:57] LABS: PROCALCITONIN 0.15 ng/ml
[2023-07-31] MEDS ORDERED: MORPHINE 2 MG/ML 1ML VIAL IV PRN (08:00)
[2023-07-31] MEDS: ACETAMINOPHEN *IV* 1,000 MG in IV 1 EA IV ONE (09:33)
[2023-07-31] MEDS: oxyCODONE 5MG TAB PO PRN (11:07)
[2023-07-31] MEDS: ACETAMINOPHEN *IV* 1,000 MG in IV 1 EA IV SCH (16:07)
[2023-07-31] MEDS: DOCUSATE SODIUM 100MG CAPSULE PO SCH (21:00)
[2023-07-31] MEDS: HEPARIN SOD (PORCINE) 5000UNITS/ML 1ML VIAL/SYRINGE SC SCH (21:11)
[2023-08-01] VITALS (10 sets, daily range): BP systolic 101–146; BP diastolic 53–88; TEMP 97.2–99.6; O2SAT 90–98
[2023-08-01 05:49] LABS: HEMATOCRIT 39.3 % (42.0-52.0); HEMOGLOBIN 13.3 g/dl (13.5-17.5); MEAN CORPUSCULAR HEMOGLOBIN 29.7 pg (27.0-33.0); MEAN CORPUSCULAR HGB CONC 33.8 g/dl (32.0-36.5); MEAN CORPUSCULAR VOLUME 87.7 fl (80.0-96.0); PLATELET COUNT, AUTOMATED 220 10^3/uL (150-450); RED BLOOD COUNT 4.48 10^6/uL (4.30-6.10); WHITE BLOOD COUNT 26.3 10^3/uL (4.0-10.0)
[2023-08-01 06:21] LABS: ALBUMIN 2.6 G/DL (3.2-5.2); ALKALINE PHOSPHATASE 66 U/L (46-116); ALT/SGPT 16 U/L (7.0-40); AST/SGOT 10 U/L (<34); BILIRUBIN,TOTAL 0.9 MG/DL (0.3-1.2); BLOOD UREA NITROGEN 16 MG/DL (9-23); CALCIUM LEVEL 8.4 MG/DL (8.5-10.1); CARBON DIOXIDE LEVEL 27 MMOL/L (20-31); CHLORIDE LEVEL 100 MMOL/L (98-107); CREATININE FOR GFR 0.71 MG/DL (0.70-1.30); GLOMERULAR FILTRATION RATE > 60.0 (>56); GLUCOSE, FASTING 155 MG/DL (60-100); POTASSIUM SERUM 3.9 MMOL/L (3.5-5.1); SODIUM LEVEL 131 MMOL/L (136-145); TOTAL PROTEIN 5.8 G/DL (5.7-8.2)
[2023-08-01] MEDS ORDERED: ACETAMINOPHEN 1000MG 100ML IV BAG As Ordered ONE (14:05)
[2023-08-01] MEDS ORDERED: propofoL 200 MG/20 ML VIAL As Ordered ONE (14:07)
[2023-08-01] MEDS ORDERED: ONDANSETRON 4MG 2ML VIAL As Ordered ONE (14:07)
[2023-08-01] MEDS ORDERED: LIDOCAINE 2% 100MG/5ML SDV (FOR ANES.) As Ordered ONE (14:07)
[2023-08-01] MEDS ORDERED: ROCURONIUM BROMIDE 50MG/5ML VIAL As Ordered ONE (14:07)
[2023-08-01] MEDS ORDERED: SUGAMMADEX SODIUM 500 MG/5 ML VIAL (BRIDION) As Ordered ONE (14:07)
[2023-08-01] MEDS ORDERED: MIDAZOLAM INJ 2MG/2ML VIAL As Ordered ONE (14:11)
[2023-08-01] MEDS ORDERED: fentaNYL 100 MCG/2 ML INJECTION As Ordered ONE (14:11)
[2023-08-01] MEDS: ZOSYN 3.375GM VIAL As Ordered ONE (15:19)
[2023-08-01] MEDS ORDERED: dexmedeTOMIDine (4MCG/ML)200MCG/50ML BTL (PRECEDEX) As Ordered ONE (15:42)
[2023-08-01] MEDS ORDERED: HYDROmorphone HCL 2MG/ML 1ML VIAL As Ordered ONE (15:50)
[2023-08-01] MEDS ORDERED: ESMOLOL INJ 100MG/10ML VIAL As Ordered ONE (16:39)
[2023-08-01] MEDS ORDERED: fentaNYL 100 MCG/2 ML INJECTION IV PRN (17:25)
[2023-08-01] MEDS ORDERED: LR 1,000 ML IV SCH (17:25)
[2023-08-01] MEDS ORDERED: HYDROMORPHONE HCL 0.5 MG/ 0.5 ML SYRINGE IV PRN (17:25)
[2023-08-01] MEDS ORDERED: ONDANSETRON 4MG 2ML VIAL IV PRN (17:25)
[2023-08-02] VITALS (8 sets, daily range): BP systolic 113–131; BP diastolic 65–75; TEMP 96.1–98.5; O2SAT 95–98
[2023-08-02 06:14] LABS: HEMATOCRIT 37.4 % (42.0-52.0); HEMOGLOBIN 12.5 g/dl (13.5-17.5); MEAN CORPUSCULAR HEMOGLOBIN 29.5 pg (27.0-33.0); MEAN CORPUSCULAR HGB CONC 33.4 g/dl (32.0-36.5); MEAN CORPUSCULAR VOLUME 88.2 fl (80.0-96.0); PLATELET COUNT, AUTOMATED 231 10^3/uL (150-450); RED BLOOD COUNT 4.24 10^6/uL (4.30-6.10); WHITE BLOOD COUNT 19.9 10^3/uL (4.0-10.0)
[2023-08-02 06:35] LABS: ALBUMIN 2.2 G/DL (3.2-5.2); ALKALINE PHOSPHATASE 64 U/L (46-116); ALT/SGPT 14 U/L (7.0-40); AST/SGOT 13 U/L (<34); BILIRUBIN,TOTAL 0.4 MG/DL (0.3-1.2); BLOOD UREA NITROGEN 16 MG/DL (9-23); CALCIUM LEVEL 8.2 MG/DL (8.5-10.1); CARBON DIOXIDE LEVEL 28 MMOL/L (20-31); CHLORIDE LEVEL 101 MMOL/L (98-107); CREATININE FOR GFR 0.64 MG/DL (0.70-1.30); GLOMERULAR FILTRATION RATE > 60.0 (>56); GLUCOSE, FASTING 187 MG/DL (60-100); POTASSIUM SERUM 4.2 MMOL/L (3.5-5.1); SODIUM LEVEL 132 MMOL/L (136-145); TOTAL PROTEIN 5.4 G/DL (5.7-8.2)
[2023-08-02] MEDS: LEVEMIR (INSULIN DETEMIR) 1 UNITS/0.01ML SC ONE (14:40)
[2023-08-02 14:58] LABS: HEMOGLOBIN A1c 7.1 % (4.0-6.0)
[2023-08-02] MEDS: INSULIN LISPRO (NovoLOG) PER UNIT SC SCH ×2 (18:05→20:18)
[2023-08-02] MEDS: ACETAMINOPHEN *IV* 1,000 MG in IV 1 EA IV SCH (18:06)
[2023-08-03 03:48] VITALS: BP 117/61; TEMP 97.3; O2SAT 99
[2023-08-03 06:04] LABS: HEMATOCRIT 33.4 % (42.0-52.0); HEMOGLOBIN 11.2 g/dl (13.5-17.5); MEAN CORPUSCULAR HEMOGLOBIN 29.3 pg (27.0-33.0); MEAN CORPUSCULAR HGB CONC 33.5 g/dl (32.0-36.5); MEAN CORPUSCULAR VOLUME 87.4 fl (80.0-96.0); PLATELET COUNT, AUTOMATED 249 10^3/uL (150-450); RED BLOOD COUNT 3.82 10^6/uL (4.30-6.10); WHITE BLOOD COUNT 13.9 10^3/uL (4.0-10.0)
[2023-08-03 06:27] LABS: ALBUMIN 2.3 G/DL (3.2-5.2); ALKALINE PHOSPHATASE 60 U/L (46-116); ALT/SGPT 17 U/L (7.0-40); AST/SGOT 18 U/L (<34); BILIRUBIN,TOTAL 0.4 MG/DL (0.3-1.2); BLOOD UREA NITROGEN 18 MG/DL (9-23); CARBON DIOXIDE LEVEL 31 MMOL/L (20-31); CHLORIDE LEVEL 102 MMOL/L (98-107); CREATININE FOR GFR 0.69 MG/DL (0.70-1.30); GLOMERULAR FILTRATION RATE > 60.0 (>56); GLUCOSE, FASTING 170 MG/DL (60-100); POTASSIUM SERUM 4.1 MMOL/L (3.5-5.1); SODIUM LEVEL 135 MMOL/L (136-145); TOTAL PROTEIN 5.5 G/DL (5.7-8.2)
[2023-08-03 07:52] VITALS: BP 141/77; TEMP 97.3; O2SAT 96
[2023-08-03] MEDS: LEVEMIR (INSULIN DETEMIR) 1 UNITS/0.01ML SC SCH (08:27)
[2023-08-03 12:17] VITALS: BP 112/65; TEMP 97.6; O2SAT 96
[2023-08-03 16:00] VITALS: BP 118/78; TEMP 97.8; O2SAT 96
[2023-08-03 19:22] VITALS: BP 124/76; TEMP 97.6; O2SAT 95
[2023-08-03 23:01] VITALS: BP 121/75; TEMP 97.5; O2SAT 96
[2023-08-04 03:50] VITALS: BP 135/86; TEMP 97.3; O2SAT 95
[2023-08-04 06:03] LABS: HEMATOCRIT 35.3 % (42.0-52.0); HEMOGLOBIN 11.8 g/dl (13.5-17.5); MEAN CORPUSCULAR HEMOGLOBIN 29.4 pg (27.0-33.0); MEAN CORPUSCULAR HGB CONC 33.4 g/dl (32.0-36.5); MEAN CORPUSCULAR VOLUME 87.8 fl (80.0-96.0); PLATELET COUNT, AUTOMATED 291 10^3/uL (150-450); RED BLOOD COUNT 4.02 10^6/uL (4.30-6.10); WHITE BLOOD COUNT 12.7 10^3/uL (4.0-10.0)
[2023-08-04 06:27] LABS: ALBUMIN 2.2 G/DL (3.2-5.2); ALKALINE PHOSPHATASE 63 U/L (46-116); ALT/SGPT 29 U/L (7.0-40); AST/SGOT 26 U/L (<34); BILIRUBIN,TOTAL 0.4 MG/DL (0.3-1.2); BLOOD UREA NITROGEN 18 MG/DL (9-23); CALCIUM LEVEL 7.9 MG/DL (8.5-10.1); CARBON DIOXIDE LEVEL 28 MMOL/L (20-31); CHLORIDE LEVEL 104 MMOL/L (98-107); CREATININE FOR GFR 0.59 MG/DL (0.70-1.30); GLOMERULAR FILTRATION RATE > 60.0 (>56); GLUCOSE, FASTING 150 MG/DL (60-100); POTASSIUM SERUM 3.8 MMOL/L (3.5-5.1); SODIUM LEVEL 135 MMOL/L (136-145); TOTAL PROTEIN 5.4 G/DL (5.7-8.2)
[2023-08-04 07:48] VITALS: BP 137/73; TEMP 97.3; O2SAT 95
[2023-08-04] MEDS: SENNA 8.6 MG TAB (SENOKOT) PO PRN (08:45)
[2023-08-04 12:48] VITALS: BP 143/83; TEMP 97.8; O2SAT 96
[2023-08-04] MEDS ORDERED: ACETAMINOPHEN TAB 650MG DOSE (2X325MG) PO PRN (14:25)
[2023-08-04] MEDS: PERCOCET 5MG/325MG TAB PO PRN (14:43)
[2023-08-04 15:57] VITALS: BP 133/79; TEMP 98; O2SAT 95
[2023-08-04 19:41] VITALS: BP 129/76; TEMP 97.8; O2SAT 93
[2023-08-04 20:22] VITALS: BP 129/76; TEMP 97.8; O2SAT 93
[2023-08-04] MEDS: AUGMENTIN 875 MG TAB PO SCH (22:11)
[2023-08-05] VITALS: BP 129/76; TEMP 97.8; O2SAT 93
[2023-08-05 04:40] VITALS: BP 129/76; TEMP 97.8; O2SAT 93
[2023-08-05 04:56] VITALS: BP 133/78; TEMP 97.5; O2SAT 97
[2023-08-05 05:45] LABS: HEMATOCRIT 37.9 % (42.0-52.0); HEMOGLOBIN 12.7 g/dl (13.5-17.5); MEAN CORPUSCULAR HEMOGLOBIN 29.3 pg (27.0-33.0); MEAN CORPUSCULAR HGB CONC 33.5 g/dl (32.0-36.5); MEAN CORPUSCULAR VOLUME 87.5 fl (80.0-96.0); PLATELET COUNT, AUTOMATED 326 10^3/uL (150-450); RED BLOOD COUNT 4.33 10^6/uL (4.30-6.10); WHITE BLOOD COUNT 14.7 10^3/uL (4.0-10.0)
[2023-08-05 06:11] LABS: ALBUMIN 2.3 G/DL (3.2-5.2); ALKALINE PHOSPHATASE 65 U/L (46-116); ALT/SGPT 28 U/L (7.0-40); AST/SGOT 19 U/L (<34); BILIRUBIN,TOTAL 0.5 MG/DL (0.3-1.2); BLOOD UREA NITROGEN 11 MG/DL (9-23); CALCIUM LEVEL 8.1 MG/DL (8.5-10.1); CARBON DIOXIDE LEVEL 28 MMOL/L (20-31); CHLORIDE LEVEL 103 MMOL/L (98-107); CREATININE FOR GFR 0.55 MG/DL (0.70-1.30); GLOMERULAR FILTRATION RATE > 60.0 (>56); GLUCOSE, FASTING 140 MG/DL (60-100); SODIUM LEVEL 136 MMOL/L (136-145); TOTAL PROTEIN 5.4 G/DL (5.7-8.2)
[2023-08-05] MEDS: PERCOCET 5MG/325MG TAB PO PRN (06:23)
[2023-08-05 07:54] VITALS: BP 133/76; TEMP 98; O2SAT 96
[2023-08-05] MEDS: FUROSEMIDE 40MG/4ML VIAL IV ONE (09:33)
[2023-08-05] MEDS ORDERED: METR-265 PO (11:51)
[2023-08-05] MEDS ORDERED: SENO8.6T5 PO (11:51)
[2023-08-05] MEDS ORDERED: PERCOCET PO (11:51)
[2023-08-05] MEDS ORDERED: PROB250C PO (11:51)
[2023-08-05] MEDS ORDERED: ACET1TAB55 PO (11:51)
[2023-08-05] MEDS ORDERED: AMOX875T2 PO (11:51)
[2023-08-05] MEDS ORDERED: COLA100C5 PO (11:51)
[2023-08-05 12:42] VITALS: BP 124/69; TEMP 97.5; O2SAT 97
== END 2023-08-05 15:49 | disposition home or self-care (01) | DRG 710 ==
LOC: M ED 02:24 → M ED INP 08:36 → ENRESERV 08:59 → M PCU 10:13
PROVIDERS: ADMIT Student in an Organized Health Care Education/Training Program; ATTEND Internal Medicine
PROC: 0D9J4ZX Drainage of Appendix, Percutaneous Endoscopic Approach, Diagnostic (ICD-10-PCS; principal; 2023-08-01 14:30)
DX: A41.9 Sepsis, unspecified organism (principal); K35.32 Acute appendicitis with perforation, localized peritonitis, and gangrene, without abscess; E27.8 Other specified disorders of adrenal gland; E87.1 Hypo-osmolality and hyponatremia; E66.01 Morbid (severe) obesity due to excess calories; N28.1 Cyst of kidney, acquired; G47.33 Obstructive sleep apnea (adult) (pediatric); I10 Essential (primary) hypertension; E11.9 Type 2 diabetes mellitus without complications; F17.200 Nicotine dependence, unspecified, uncomplicated; Z79.899 Other long term (current) drug therapy; Z68.38 Body mass index [BMI] 38.0-38.9, adult

== ENCOUNTER → 2023-08-09 | Outpatient (CLI) | payer BC ==
[~2023-08-09] MED LIST changes: +ACET1TAB55 PO; +AMOX875T2 PO; +COLA100C5 PO; +DULA3PEN SC; +GASTROGRAFIN SOLUTION 30ML As Ordered ONE; +ISOVUE-370 76% 100ML VIAL As Ordered ONE; +METR-265 PO; +PERCOCET PO; +PROB250C PO; +SENO8.6T5 PO; +STIO1AER INH; +VARE0.5T PO
== END ==
LOC: M RAD 08:59
PROVIDERS: ATTEND Surgery
DX: K35.32 Acute appendicitis with perforation, localized peritonitis, and gangrene, without abscess (principal); Z90.49 Acquired absence of other specified parts of digestive tract
CPT/HCPCS: 74177; Q9963; Q9967

== ENCOUNTER → 2023-08-10 | Outpatient (CLI) | payer BC ==
[~2023-08-10] MED LIST changes: -GASTROGRAFIN SOLUTION 30ML As Ordered ONE; -ISOVUE-370 76% 100ML VIAL As Ordered ONE
== END ==
LOC: M RAD 12:04
PROVIDERS: ATTEND Radiology Diagnostic Radiology
DX: Z48.03 Encounter for change or removal of drains (principal); L02.211 Cutaneous abscess of abdominal wall

== ENCOUNTER → 2023-08-10 | Outpatient (CLI) | payer BC ==
[~2023-08-10] MED LIST changes: +LIDOCAINE 1% MDV 20ML VIAL As Ordered ONE; +MIDAZOLAM INJ 2MG/2ML VIAL As Ordered ONE; +fentaNYL 100 MCG/2 ML INJECTION As Ordered ONE
[2023-08-10 12:30] VITALS: TEMP 98.1
[2023-08-10 16:30] VITALS: BP 108/60; O2SAT 96
== END ==
LOC: M IRPRO 12:06
PROVIDERS: ATTEND Surgery
DX: K35.211 Acute appendicitis with generalized peritonitis, with perforation and abscess (principal)
CPT/HCPCS: 49405; 87070; 87075; 87076; 87077; 87102; 87186; 87205; 99152; 99153; J2250; J3010

== ENCOUNTER → 2023-09-04 | Outpatient (CLI) | payer BC ==
[~2023-09-04] MED LIST changes: -LIDOCAINE 1% MDV 20ML VIAL As Ordered ONE; -MIDAZOLAM INJ 2MG/2ML VIAL As Ordered ONE; -fentaNYL 100 MCG/2 ML INJECTION As Ordered ONE
[2023-09-04 15:32] LABS: BLOOD UREA NITROGEN 24 MG/DL (9-23); GLOMERULAR FILTRATION RATE > 60.0 (>56)
== END ==
LOC: M PLALAB 11:08
PROVIDERS: ATTEND Surgery
DX: K35.211 Acute appendicitis with generalized peritonitis, with perforation and abscess (principal)

== ENCOUNTER → 2023-09-05 | Outpatient (CLI) | payer BC ==
[~2023-09-05] MED LIST changes: +GASTROGRAFIN SOLUTION 30ML ONE; +ISOVUE-370 76% 100ML VIAL ONE
== END ==
LOC: M PLAIMG 07:04
PROVIDERS: ATTEND Surgery
DX: K35.211 Acute appendicitis with generalized peritonitis, with perforation and abscess (principal); D35.02 Benign neoplasm of left adrenal gland; N28.1 Cyst of kidney, acquired; Z96.89 Presence of other specified functional implants
CPT/HCPCS: 74178; Q9963; Q9967

== ENCOUNTER → 2023-11-05 | Outpatient (CLI) | payer BC ==
[~2023-11-05] MED LIST changes: +GASTROGRAFIN SOLUTION 30ML As Ordered ONE; -GASTROGRAFIN SOLUTION 30ML ONE; +ISOVUE-370 76% 100ML VIAL As Ordered ONE; -ISOVUE-370 76% 100ML VIAL ONE
== END ==
LOC: M RAD 14:20
PROVIDERS: ATTEND Surgery
DX: K35.211 Acute appendicitis with generalized peritonitis, with perforation and abscess (principal)
CPT/HCPCS: 74177; Q9963; Q9967

== ENCOUNTER 2024-03-26 10:49 | Day surgery (SDC) | payer BC ==
[~2024-03-26] VITALS: Ht 185.4 cm; Wt 136.5 kg
[~2024-03-26 10:49] MED LIST changes: -GASTROGRAFIN SOLUTION 30ML As Ordered ONE; -ISOVUE-370 76% 100ML VIAL As Ordered ONE; +UNRESOLVED CLARIFICATION ENTRY XX SCH
[2024-03-26] MEDS ORDERED: ceFAZolin SOD 3 GM in IV 1 EA IV ONE (11:50)
[2024-03-26] MEDS ORDERED: ceFAZolin SOD 1 GM in DEXTROSE 5% (D5W) ADV/MINI-BAG 50 ML IV ONE (12:00)
[2024-03-26] MEDS ORDERED: LIDOCAINE 2% 100MG/5ML SDV (FOR ANES.) As Ordered ONE (12:01)
[2024-03-26] MEDS ORDERED: propofoL 200 MG/20 ML VIAL As Ordered ONE (12:01)
[2024-03-26] MEDS ORDERED: GLYCOPYRROLATE INJ 0.2 MG/ML 2 ML VIAL As Ordered ONE (12:01)
[2024-03-26] MEDS ORDERED: ROCURONIUM BROMIDE 50MG/5ML VIAL As Ordered ONE (12:01)
[2024-03-26] MEDS ORDERED: ONDANSETRON 4MG 2ML VIAL As Ordered ONE (12:01)
[2024-03-26] MEDS ORDERED: fentaNYL 100 MCG/2 ML INJECTION As Ordered ONE (12:02)
[2024-03-26] MEDS ORDERED: MIDAZOLAM INJ 2MG/2ML VIAL As Ordered ONE (12:02)
[2024-03-26] MEDS ORDERED: ACETAMINOPHEN 1000MG/100ML IV BAG As Ordered ONE (12:12)
[2024-03-26] MEDS: HEPARIN SOD (PORCINE) 5000UNITS/ML 1ML VIAL/SYRINGE SQ ONE (12:47)
[2024-03-26] MEDS: ceFAZolin SOD 2 GM in IV 1 EA IV ONE (12:47)
[2024-03-26] MEDS ORDERED: SUGAMMADEX SODIUM 500 MG/5 ML VIAL (BRIDION) As Ordered ONE (13:10)
[2024-03-26] MEDS ORDERED: HYDROMORPHONE HCL 0.5 MG/ 0.5 ML SYRINGE IV PRN (14:10)
[2024-03-26] MEDS ORDERED: MEPERIDINE 25 MG/ML 1ML VIAL IV PRN (14:10)
[2024-03-26] MEDS ORDERED: oxyCODONE 5MG TAB PO PRN (14:10)
[2024-03-26] MEDS ORDERED: METOCLOPRAMIDE INJ 10MG/2ML VIAL IV PRN (14:10)
[2024-03-26] MEDS ORDERED: ALBUTEROL SULFATE 2.5MG/0.5ML INH NEB SOLN INH ONE (14:10)
[2024-03-26] MEDS ORDERED: ONDANSETRON 4MG 2ML VIAL IV PRN (14:10)
[2024-03-26] MEDS: fentaNYL 100 MCG/2 ML INJECTION IV PRN (14:14)
[2024-03-26] MEDS: HYDROMORPHONE HCL 0.5 MG/ 0.5 ML SYRINGE IV PRN (14:56)
[2024-03-26] MEDS: oxyCODONE 5MG TAB PO PRN (15:28)
[2024-03-26 16:45] VITALS: BP 146/84; TEMP 97.4; O2SAT 95
== END 2024-03-26 17:32 | disposition home or self-care (01) ==
LOC: M SDC 10:49
PROVIDERS: ATTEND Surgery
DX: K35.80 Unspecified acute appendicitis (principal); I10 Essential (primary) hypertension; E11.9 Type 2 diabetes mellitus without complications; E78.5 Hyperlipidemia, unspecified; J44.9 Chronic obstructive pulmonary disease, unspecified; G47.30 Sleep apnea, unspecified; Z79.899 Other long term (current) drug therapy; Z79.51 Long term (current) use of inhaled steroids; Z79.84 Long term (current) use of oral hypoglycemic drugs
CPT/HCPCS: 44970; 88304; J0131; J0665; J0690; J1100; J1171; J1596; J2250; J2405; J3010; S2900

== ENCOUNTER → 2024-07-04 | Outpatient (CLI) | payer BC ==
[~2024-07-04] MED LIST changes: -UNRESOLVED CLARIFICATION ENTRY XX SCH
[2024-07-04 14:19] LABS: BASO # 0.1 10^3/uL (0.0-0.2); BASO % 0.7 % (0.0-1.0); EOS # 0.2 10^3/uL (0.0-0.5); EOS % 2.2 % (0.0-3.0); HEMOGLOBIN 13.8 g/dl (13.5-17.5); LYMPH # 2.5 10^3/uL (1.5-5.0); LYMPH % 28.4 % (24.0-44.0); MEAN CORPUSCULAR HEMOGLOBIN 28.6 pg (27.0-33.0); MEAN CORPUSCULAR HGB CONC 32.1 g/dl (32.0-36.5); MONO # 0.7 10^3/uL (0.0-0.8); NEUTROPHILS # 5.3 10^3/uL (1.5-8.5); NEUTROPHILS % 60.5 % (36.0-66.0); PLATELET COUNT, AUTOMATED 273 10^3/uL (150-450); RED BLOOD COUNT 4.83 10^6/uL (4.30-6.10); WHITE BLOOD COUNT 8.7 10^3/uL (4.0-10.0)
[2024-07-04 14:36] LABS: CREATININE, URINE 109.3 MG/DL; MAU/CREAT RATIO 101.5 MCG/MG (0.0-30.0)
[2024-07-04 14:40] LABS: ALBUMIN 3.9 G/DL (3.2-5.2); ALKALINE PHOSPHATASE 79 U/L (40-129); ALT/SGPT 41 U/L (7.0-40); AST/SGOT 22 U/L (<34); BILIRUBIN,TOTAL 0.6 MG/DL (0.3-1.2); BLOOD UREA NITROGEN 22 MG/DL (9-23); CALCIUM LEVEL 9.2 MG/DL (8.5-10.1); CARBON DIOXIDE LEVEL 27 MMOL/L (20-31); CHLORIDE LEVEL 103 MMOL/L (98-107); CHOLESTEROL LEVEL 134 MG/DL (<200); CHOLESTEROL RISK RATIO 3.62 (<5); CREATININE FOR GFR 0.78 MG/DL (0.70-1.30); FREE T4 0.99 NG/DL (0.89-1.76); GLOMERULAR FILTRATION RATE > 60.0 (>56); GLUCOSE, FASTING 145 MG/DL (60-100); LDL CHOLESTEROL 74.4 MG/DL (<100); POTASSIUM SERUM 4.9 MMOL/L (3.5-5.1); SODIUM LEVEL 137 MMOL/L (136-145); TOTAL PROTEIN 7.1 G/DL (5.7-8.2); TRIGLYCERIDES LEVEL 113 MG/DL (<150)
[2024-07-04 14:41] LABS: THYROID STIMULATING HORMONE 0.701 uIU/ML (0.55-4.78)
[2024-07-04 14:51] LABS: HEMOGLOBIN A1c 7.8 % (4.0-6.0)
== END ==
LOC: M PLALAB 09:42
PROVIDERS: ATTEND Nurse Practitioner Family
DX: I10 Essential (primary) hypertension (principal); E11.9 Type 2 diabetes mellitus without complications; E78.5 Hyperlipidemia, unspecified

== ENCOUNTER 2024-10-14 09:43 | Emergency (ER) | payer BC ==
[~2024-10-14] VITALS: Ht 190.5 cm; Wt 148.2 kg
[2024-10-14] MEDS ORDERED: METH-1165 (09:58)
[2024-10-14] MEDS ORDERED: GABA-1171 (09:58)
[2024-10-14] MEDS ORDERED: HYDR-3719 (09:58)
[2024-10-14] MEDS ORDERED: PRED20TA (09:58)
[2024-10-14 14:48] VITALS: BP 128/85; TEMP 96.5; O2SAT 97
[2024-10-14] MEDS ORDERED: GABA-1171 PO (15:47)
[2024-10-14] MEDS ORDERED: METH-1165 PO (15:47)
[2024-10-14] MEDS ORDERED: HYDR-3719 PO (15:47)
== END 2024-10-14 15:57 | disposition home or self-care (01) ==
LOC: M ED 09:43
DX: M51.26 Other intervertebral disc displacement, lumbar region (principal); E11.9 Type 2 diabetes mellitus without complications; I10 Essential (primary) hypertension; G47.33 Obstructive sleep apnea (adult) (pediatric); G56.03 Carpal tunnel syndrome, bilateral upper limbs; Z90.89 Acquired absence of other organs; Z79.52 Long term (current) use of systemic steroids; Z79.02 Long term (current) use of antithrombotics/antiplatelets; Z79.4 Long term (current) use of insulin; Z79.899 Other long term (current) drug therapy
CPT/HCPCS: 72148; 99283; G0463

== ENCOUNTER 2025-02-09 14:21 | Emergency (ER) | payer BC ==
[~2025-02-09] VITALS: Ht 185.4 cm; Wt 148.2 kg
[~2025-02-09 14:21] MED LIST changes: +GABA-1171; +GABA-1171 PO; +HYDR-3719; +HYDR-3719 PO; +METH-1165; +METH-1165 PO; +PRED20TA; +SENN-225 PO; -SENO8.6T5 PO
[2025-02-09] MEDS: IBUPROFEN 800 MG TAB PO ONE (15:26)
[2025-02-09] MEDS: MORPHINE 4 MG/ML 1 ML VIAL IV ONE (16:32)
[2025-02-09] MEDS: OXYCODONE/APAP 5MG/325MG(HOME DOSE PACK) PO ONE (20:06)
[2025-02-09 20:17] VITALS: BP 152/80; TEMP 97.4; O2SAT 97
== END 2025-02-09 20:21 | disposition home or self-care (01) ==
LOC: EDBD 14:21 → M ED 14:21
DX: M71.22 Synovial cyst of popliteal space [Baker], left knee (principal); E11.9 Type 2 diabetes mellitus without complications; I10 Essential (primary) hypertension; G47.33 Obstructive sleep apnea (adult) (pediatric); M54.50 Low back pain, unspecified; Z79.52 Long term (current) use of systemic steroids; Z79.02 Long term (current) use of antithrombotics/antiplatelets; Z79.1 Long term (current) use of non-steroidal anti-inflammatories (NSAID); Z79.4 Long term (current) use of insulin; Z79.899 Other long term (current) drug therapy

== ENCOUNTER → 2025-02-17 | Outpatient (CLI) | payer BC ==
[2025-02-17 13:19] LABS: BASO # 0.1 10^3/uL (0.0-0.2); BASO % 0.6 % (0.0-1.0); EOS # 0.2 10^3/uL (0.0-0.5); EOS % 2.5 % (0.0-3.0); LYMPH # 2.2 10^3/uL (1.5-5.0); LYMPH % 26.8 % (24.0-44.0); MONO # 0.6 10^3/uL (0.0-0.8); MONO % 7.6 % (2.0-8.0); NEUTROPHILS # 5.2 10^3/uL (1.5-8.5); NEUTROPHILS % 62.3 % (36.0-66.0); PLATELET COUNT, AUTOMATED 248 10^3/uL (150-450)
[2025-02-17 13:24] LABS: ALT/SGPT 37 U/L (7.0-40); AST/SGOT 22 U/L (<34); CALCIUM LEVEL 9.3 MG/DL (8.5-10.1); CARBON DIOXIDE LEVEL 26 MMOL/L (20-31); CHLORIDE LEVEL 98 MMOL/L (98-107); CREATININE FOR GFR 0.68 MG/DL (0.70-1.30); GLOMERULAR FILTRATION RATE > 90.0 (>56); MAGNESIUM LEVEL 1.8 MG/DL (1.8-2.4); POTASSIUM SERUM 4.6 MMOL/L (3.5-5.1); SODIUM LEVEL 134 MMOL/L (136-145)
[2025-02-17 13:25] LABS: ESTIMATED AVERAGE GLUCOSE 283.0 MG/DL (60-110)
== END ==
LOC: M PLALAB 09:39
PROVIDERS: ATTEND Nurse Practitioner Family
DX: I10 Essential (primary) hypertension (principal); E11.9 Type 2 diabetes mellitus without complications

== ENCOUNTER → 2025-03-11 | Outpatient (CLI) | payer BC | LOC: M PLAIMG 07:27 | PROVIDERS: ATTEND Orthopaedic Surgery | DX: M17.12 Unilateral primary osteoarthritis, left knee (principal); R60.0 Localized edema; M71.22 Synovial cyst of popliteal space [Baker], left knee ==

== ENCOUNTER → 2025-04-03 | Outpatient (CLI) | payer BC ==
[2025-04-03 14:08] LABS: BASO # 0.1 10^3/uL (0.0-0.2); BASO % 0.7 % (0.0-1.0); EOS # 0.2 10^3/uL (0.0-0.5); EOS % 2.8 % (0.0-3.0); LYMPH # 2.2 10^3/uL (1.5-5.0); LYMPH % 31.1 % (24.0-44.0); MONO # 0.6 10^3/uL (0.0-0.8); MONO % 8.1 % (2.0-8.0); NEUTROPHILS # 4.1 10^3/uL (1.5-8.5); NEUTROPHILS % 56.9 % (36.0-66.0); PLATELET COUNT, AUTOMATED 275 10^3/uL (150-450)
[2025-04-03 14:21] LABS: ESTIMATED AVERAGE GLUCOSE 283.0 MG/DL (60-110)
[2025-04-03 14:39] LABS: PSA SCREENING 0.64 NG/ML (< 4.00)
[2025-04-03 14:40] LABS: CREATININE, URINE 112.8 MG/DL; MALB URINE SIEMENS 339.0 MG/L; MAU/CREAT RATIO 300.5 MCG/MG (0.0-30.0)
[2025-04-03 14:42] LABS: ALT/SGPT 44 U/L (7.0-40); AST/SGOT 27 U/L (<34); CALCIUM LEVEL 9.2 MG/DL (8.5-10.1); CARBON DIOXIDE LEVEL 29 MMOL/L (20-31); CHLORIDE LEVEL 102 MMOL/L (98-107); CHOLESTEROL LEVEL 149 MG/DL (<200); CHOLESTEROL RISK RATIO 3.55 (<5); CREATININE FOR GFR 0.74 MG/DL (0.70-1.30); GLOMERULAR FILTRATION RATE > 90.0 (>56); LDL CHOLESTEROL 87.5 MG/DL (<100); MAGNESIUM LEVEL 1.8 MG/DL (1.8-2.4); NON-HDL-C 107.1 MG/DL; POTASSIUM SERUM 4.8 MMOL/L (3.5-5.1); SODIUM LEVEL 138 MMOL/L (136-145); TRIGLYCERIDES LEVEL 98 MG/DL (<150)
[2025-04-03 14:43] LABS: FREE T4 1.20 NG/DL (0.89-1.76)
== END ==
LOC: M PLAIMG 09:53
PROVIDERS: ATTEND Nurse Practitioner Family
DX: I10 Essential (primary) hypertension (principal); E11.9 Type 2 diabetes mellitus without complications; E78.5 Hyperlipidemia, unspecified; Z12.5 Encounter for screening for malignant neoplasm of prostate; M54.16 Radiculopathy, lumbar region
CPT/HCPCS: 36415; 72110; 80053; 80061; 82043; 83036; 83735; 84439; 84443; 85025; G0103

== ENCOUNTER 2025-04-08 14:30 | Outpatient (RCR) | payer BC | END 2025-04-29 | LOC: M PT 14:30 | PROVIDERS: ATTEND Orthopaedic Surgery | DX: S83.242D Other tear of medial meniscus, current injury, left knee, subsequent encounter (principal); W18.30XD Fall on same level, unspecified, subsequent encounter; Y92.009 Unspecified place in unspecified non-institutional (private) residence as the place of occurrence of the external cause ==

== ENCOUNTER → 2025-04-09 | Outpatient (CLI) | payer BC ==
[2025-04-09 15:13] LABS: BASO # 0.1 10^3/uL (0.0-0.2); BASO % 0.6 % (0.0-1.0); EOS # 0.1 10^3/uL (0.0-0.5); EOS % 1.8 % (0.0-3.0); LYMPH # 2.5 10^3/uL (1.5-5.0); LYMPH % 32.6 % (24.0-44.0); MONO # 0.6 10^3/uL (0.0-0.8); MONO % 7.5 % (2.0-8.0); NEUTROPHILS # 4.4 10^3/uL (1.5-8.5); NEUTROPHILS % 57.2 % (36.0-66.0); PLATELET COUNT, AUTOMATED 265 10^3/uL (150-450)
[2025-04-09 15:14] LABS: ALT/SGPT 54 U/L (7.0-40); AST/SGOT 36 U/L (<34); CALCIUM LEVEL 9.1 MG/DL (8.5-10.1); CARBON DIOXIDE LEVEL 28 MMOL/L (20-31); CHLORIDE LEVEL 101 MMOL/L (98-107); CREATININE FOR GFR 0.76 MG/DL (0.70-1.30); GLOMERULAR FILTRATION RATE > 90.0 (>56); POTASSIUM SERUM 4.4 MMOL/L (3.5-5.1); SODIUM LEVEL 137 MMOL/L (136-145)
== END ==
LOC: M PLALAB 09:54
PROVIDERS: ATTEND Nurse Practitioner Family
DX: R10.84 Generalized abdominal pain (principal)